=== PATIENT | male | born 1955 | race Caucasian/White ===

== ENCOUNTER 2023-05-05 11:09 | Emergency (ER) | payer MEDICARE, MEDICAID ==
[~2023-05-05] VITALS: Ht 198.1 cm; Wt 93.0 kg
[2023-05-05] MEDS ORDERED: LATA2.5D14 EACHEYE (11:39)
[2023-05-05] MEDS ORDERED: AMLO5TAB88 MT (11:39)
[2023-05-05] MEDS ORDERED: HYDR25TA MT (11:39)
[2023-05-05 11:46] VITALS: O2SAT 99
[2023-05-05 12:15] VITALS: BP 155/82; PULSE 57; RESP 16; TEMP 98.1
== END 2023-05-05 13:16 | disposition home or self-care (01) ==
LOC: ER 13:10
DX: Z76.0 Encounter for issue of repeat prescription (principal); F32.A Depression, unspecified; I10 Essential (primary) hypertension
CPT/HCPCS: 99283

== ENCOUNTER 2024-06-22 19:45 | Emergency (ER) | payer MEDICARE, MEDICAID ==
[~2024-06-22] VITALS: Ht 198.1 cm; Wt 94.5 kg
[~2024-06-22 19:45] MED LIST: AMLO5TAB88 MT; HYDR25TA MT; LATA2.5D14 EACHEYE
[2024-06-22 19:46] VITALS: O2SAT 98
[2024-06-22] MEDS ORDERED: AMLO5TAB88 MT (22:08)
[2024-06-22] MEDS ORDERED: BRIM5DRO6 EACHEYE (22:08)
[2024-06-22] MEDS ORDERED: [UNRECOGNIZED DRUG - CODE] EACHEYE (22:08)
[2024-06-22] MEDS ORDERED: DORZ10DR9 EACHEYE (22:08)
[2024-06-22] MEDS ORDERED: HYDR25TA MT (22:08)
[2024-06-22] MEDS ORDERED: LATA2.5D14 EACHEYE (22:08)
[2024-06-22 22:32] VITALS: BP 163/95; PULSE 67; RESP 19; TEMP 36.94740; O2SAT 100
== END 2024-06-22 22:32 | disposition home or self-care (01) ==
LOC: ER 19:45
DX: F32.A Depression, unspecified (principal); H40.9 Unspecified glaucoma; I10 Essential (primary) hypertension; N40.0 Benign prostatic hyperplasia without lower urinary tract symptoms; Z76.0 Encounter for issue of repeat prescription; Z79.899 Other long term (current) drug therapy
CPT/HCPCS: 99281

== ENCOUNTER 2024-10-26 11:09 | Emergency (ER) | payer MEDICARE, MEDICAID ==
[~2024-10-26] VITALS: Ht 198.1 cm; Wt 86.0 kg
[~2024-10-26 11:09] MED LIST changes: +BRIM5DRO6 EACHEYE; +DORZ10DR9 EACHEYE; +[UNRECOGNIZED DRUG - CODE] EACHEYE
[2024-10-26 11:11] VITALS: O2SAT 99
[2024-10-26 11:41] VITALS: BP 155/112; PULSE 64; RESP 14; TEMP 36.7; O2SAT 99
[2024-10-26] MEDS ORDERED: HYDR25TA MT (12:02)
[2024-10-26] MEDS ORDERED: BRIM5DRO6 EACHEYE (12:02)
[2024-10-26] MEDS ORDERED: AMLO5TAB88 MT (12:02)
[2024-10-26] MEDS ORDERED: LATA2.5D14 EACHEYE (12:02)
[2024-10-26] MEDS ORDERED: DORZ10DR9 EACHEYE (12:02)
[2024-10-26] MEDS ORDERED: [UNRECOGNIZED DRUG - CODE] EACHEYE (12:02)
[2024-10-26] MEDS ORDERED: OMEP20CA14 MT (12:03)
== END 2024-10-26 12:11 | disposition home or self-care (01) ==
LOC: ER 11:09
DX: F32.A Depression, unspecified (principal); I10 Essential (primary) hypertension; H40.9 Unspecified glaucoma; Z79.899 Other long term (current) drug therapy; Z76.0 Encounter for issue of repeat prescription
CPT/HCPCS: 99283